=== PATIENT | male | born 1935 ===

== ENCOUNTER → 2016-11-01 | Outpatient (CLI) | payer MEDICARE, OTHER ==
[~2016-11-01] MED LIST: ASPIRIN EC81 MG PO; CALCIUM 600 +1 EAC6 PO; CYMBALTA60 MG PO; GEMFIBROZIL600 MG PO; GLUCOSAMINE CH1 EAC6 PO; LISINOPRIL-HCT1 EAC2 PO; LUTEIN40 MG PO; NORCO 10-325 T1 EACH PO; PRESERVISION A1 EACH PO; VOLTAREN50 MG PO
== END | disposition disaster alternative care site (69) ==
LOC: GRAD 08:26
DX: M54.9 Dorsalgia, unspecified (principal); M48.06 Spinal stenosis, lumbar region; M47.896 Other spondylosis, lumbar region; M51.26 Other intervertebral disc displacement, lumbar region

== ENCOUNTER → 2016-11-26 | Outpatient (CLI) | payer MEDICARE, OTHER | LOC: LFPA 15:03 | DX: Z01.818 Encounter for other preprocedural examination (principal) ==

== ENCOUNTER 2016-12-03 07:51 | Day surgery (SDC) | payer MEDICARE, OTHER ==
[~2016-12-03] VITALS: Ht 180.3 cm; Wt 90.7 kg
--- NOTE | ~2016-12-03 | OR ---
PATIENT'S NAME: TIMBO ALMANZA [facility] AGE: 81 Y [address] ROOM: [address] [address] LOCATION: [facility] ADMIT DATE: 12/03/2016 OR/Procedure Report DISCHARGE DATE: 12/05/2016 FAMILY PHYSICIAN: Evon Browne MD ATTENDING PHYSICIAN: Lauren Fairchild SURGEON: Lauren Fairchild MD ACETYLENE CUTTER: Batsheva Mccain. DATE OF PROCEDURE: 12/03/2016 PREOPERATIVE DIAGNOSIS: Lumbar spinal stenosis. POSTOPERATIVE DIAGNOSIS: Lumbar spinal stenosis. PROCEDURES PERFORMED: 1. Bilateral laminectomy with decompression of neural elements and foraminotomy at L2-3. 2. Bilateral laminectomy with decompression of neural elements and left L3-4 microdiskectomy. 3. Bilateral laminectomy with decompression of neural elements and foraminotomy without diskectomy at L4-L5. ANESTHESIA: General. PATIENT IDENTIFICATION: Timbo De Leon is an 81-year-old gentleman. The patient presented with back pain radiating down his legs. It was becoming increasingly difficult for him to ambulate. MRI scan showed severe spinal stenosis at L2-3 and L3-4. Surgery was recommended. The above procedure with the benefits and risks were discussed with the patient, and his daughter was present. With the patient's consent, he was brought to the operating room for surgery. PROCEDURE IN DETAIL: In the operating room, the patient was placed in a supine position. Anesthesia was induced, and he was intubated. The patient was then rolled to a prone position on a Ventura table taking care to protect all pressure points. The incision line was marked out in the midline of the lower back. The whole area was prepped and draped in a sterile fashion. Local anesthesia was infiltrated. The #10 blade was used to open the incision and to deepen it to the fascial layer. Self-retaining retractors were placed. The paraspinous muscles were dissected off the spinous process and laminae of the vertebrae to be operated upon. Intraoperative x-ray was obtained to verify that we were at the desired level. Laminectomy was carried out at L2-3 and L3-4. The laminae were drilled down on both sides at L2, 3, 4, and 5; and then the rongeur was used to remove the laminae and spinous processes in one block at each level. This effectively PATIENT'S NAME: TIMBO ALMANZA [facility] AGE: 81 Y [address] ROOM: [address] [address] LOCATION: [facility] ADMIT DATE: 12/03/2016 OR/Procedure Report DISCHARGE DATE: 12/05/2016 FAMILY PHYSICIAN: Evon Browne MD ATTENDING PHYSICIAN: Lauren Fairchild completed the decompression of the central canal. The Kerrison rongeur was then used to continue the decompression and also to perform foraminotomies until the nerve roots could be seen going out into their respective foramina. The disk at L3-4 was bulging appreciably, and it was necessary to perform a diskectomy at this level also. Using the nerve root retractor, the dura and nerve roots were mobilized to the midline, and the disk was incised with 15 blade. A pituitary rongeur was used to pull out the disk material. This was performed bilaterally. At the end of the laminectomy and decompressions, the central canal was thoroughly free of any compression as well as the nerve roots. Irrigation was used to wash out the debris, and the edges of the laminectomy were waxed thoroughly. An epidural drain was left. The incision was closed in layers using appropriate suture materials. A sterile dressing was applied. The patient was rolled back to a supine position. His anesthesia was reversed. He was extubated and taken to the recovery room to complete his recovery. I was present at and performed every aspect of this procedure, assisted at different stages by operating room nurses. There were no apparent intraoperative complications. Swabs, needles, and instruments were all accounted for the end of the case. Estimated blood loss was 400 mL. There was no reason for blood transfusion. I expect the patient to benefit from this procedure. Only, a left L3-4 microdiskectomy was performed, rather than bilateral L3-4 microdiskectomy. MD SAIRA THURMANO/modl /[id number] d: 12/07/16 2352 t: 12/08/161948, OPERATIVE SUMMARY
--- NOTE | ~2016-12-03 | DS ---
PATIENT'S NAME: TIMBO ALMANZA [facility] AGE: 81 Y [address] ROOM: [address] [address] LOCATION: [facility] ADMIT DATE: 12/03/2016 Discharge Summary DISCHARGE DATE: 12/05/2016 FAMILY PHYSICIAN: Evon Browne MD ATTENDING PHYSICIAN: Lauren Fairchild REASON FOR ADMISSION: The patient was a scheduled admission for an elective procedure. The procedure was laminectomy in the lumbar area. TREATMENT RENDERED: The patient was taken to the operating room and underwent laminectomy at L2, L3, L4, and L5 with a left L3-L4 microdiskectomy. His surgery was uncomplicated. His postoperative course was uneventful. The patient improved and by the 05 of December had met all criteria for dismissal. He was dismissed home on that day accompanied by his daughters. Arrangements have been made for him to be followed up in the Neurosurgery clinic. At the time of dismissal, his incision was healing well, and he was ambulating unassisted. The patient to be followed up in the Neurosurgery Clinic to see how he is doing. LAUREN FAIRCHILD MD CNO/modl /[id number] d: 12/08/16 0843 t: 12/08/161950, DISCHARGE SUMMARY
[~2016-12-03 07:51] MED LIST changes: -NORCO 10-325 T1 EACH PO
--- NOTE | 2016-12-03 17:26 | NUR ---
Significant Event:Presents from PACU at 1600, pt was hypotensive at the end of OR and intially in the PACU, Neosynephrine given by anesthesia, and IV bolus, pt responded well. SBP 99-122 now, NS at 100ml/hr in LFA IV. SaO2 at 96-99 on RA. Uses IS up to 1000ml. Pt rates pain 6/10, reports tingling in legs/feet and at times hands, both prior to OR. Feet slightly cool, pedal pulses +2. Dsg to lumbar back area CDI, ELSA drain intact on L side, with bloody drainage noted in bulb. Next vitals due 184. Follow up:Monitor
--- NOTE | 2016-12-04 04:46 | NUR ---
Pt AOx3. No hypotension this shift. Systolic bp 114-145. Pt up to bathroom 1 assist. Pt had one emesis at approx 1900 after ambulating to the bathroom. Pt refused zofran at that time as he said he felt better. Pt later had nausea w/o emesis and received zofram at 0200, no nausea since. Pt received iv morphine 4mg x2 last at 0122. Pt's last norco at 0440. Pt was able to sleep. Dressing is C/D/I. Pt has chronic tingling from hips down legs. Pt placed on 2L O2 at 2345, O2 would drop when sleeping (87%). NS at 100 cc/hr. 160 cc's out of ELSA.
--- NOTE | 2016-12-04 17:52 | NUR ---
Significant Event: A/O x3. HRs 70s-80s, SBPs 100s-130s, afebrile. O2 remains >90% on RA. Voiding regularly, no BM today, Large emesis this morning, good appetite for breakfast and lunch. Ambulates with 1-assist, gait belt, and walker. ELSA drain had 100 out. Family supportive and updated at the bedside. Follow up:
--- NOTE | 2016-12-04 18:51 | NUR ---
d:I have reviewed and agree with charting completed by JHOAN Green.
--- NOTE | 2016-12-05 01:47 | NUR ---
Pt. alert and oriented x3. 1 assist with walker. RA - sats did drop to 89% while sleeping. Regular diet - tolerating well. IV L) forearm - saline locked. Last pain pill at 2039. Slept well throughout shift. ELSA drain to lower back. Dressing is clean, dry, and intact. Back brace to wear when up. 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 Possible home today. Report given to Diana DOSS for continuation of care.
--- NOTE | 2016-12-05 05:09 | NUR ---
Significant Event: Assumed cares at 0200. Neuropathy to bilateral feet. Equal strength to lower extremities. Pt has been sleeping since change of cares. Repositions self in bed. Pt had 120 ml out of ELSA drain. Follow up:
[2016-12-05] MEDS ORDERED: NORCO 10-325 T1 EACH PO (14:31)
--- NOTE | 2016-12-05 15:25 | NUR ---
DISMISSED PER W/C ACCOMP BY NURSE & DAUGHTER TO CAR TO GO HOME.DISCHARGE INSTRUCTIONS,MEDS,SCRIPTS & SURGERY HANDOUTS EXPLAINED & GIVEN TO PT & DAUGHTER.
== END 2016-12-05 15:25 | disposition disaster alternative care site (69) ==
LOC: G3N 07:51 → GSDC 07:51 → UNDOADMIN 07:51 → G3N 07:51 → EDSTATUS 15:00 → G3N 16:57 → GSDC 12-05 15:25
PROC: 00NY0ZZ Release Lumbar Spinal Cord, Open Approach (ICD-10-PCS; principal; 2016-12-03)
PROC: 0SB20ZZ Excision of Lumbar Vertebral Disc, Open Approach (ICD-10-PCS; 2016-12-03)
PROC: 01NB0ZZ Release Lumbar Nerve, Open Approach (ICD-10-PCS; 2016-12-03)
DX: M48.06 Spinal stenosis, lumbar region (principal); M19.90 Unspecified osteoarthritis, unspecified site; I10 Essential (primary) hypertension; E78.00 Pure hypercholesterolemia, unspecified; H35.3130 Nonexudative age-related macular degeneration, bilateral, stage unspecified; G60.8 Other hereditary and idiopathic neuropathies; E66.3 Overweight; G62.9 Polyneuropathy, unspecified; Z85.46 Personal history of malignant neoplasm of prostate; Z85.828 Personal history of other malignant neoplasm of skin; Z87.891 Personal history of nicotine dependence; Z98.890 Other specified postprocedural states; Z79.82 Long term (current) use of aspirin; Z79.899 Other long term (current) drug therapy; Z90.49 Acquired absence of other specified parts of digestive tract
CPT/HCPCS: G8978; G8979; G8980; G8981; G8982; G8983; J0690; J1040; J1100; J1170; J2001; J2250; J2270; J2405; J3010; J7030

== ENCOUNTER → 2017-01-18 | Outpatient (CLI) | payer MEDICARE, OTHER ==
[~2017-01-18] MED LIST changes: +NORCO 10-325 T1 EACH PO
== END ==
LOC: LFPA 07:58
DX: M81.8 Other osteoporosis without current pathological fracture (principal)